=== PATIENT | female | born 1990 | race American Indian/Alaskan Native ===

== ENCOUNTER 2017-02-06 12:38 | Emergency (ER) | payer MEDICAID ==
[2017-02-06 12:50] VITALS: O2SAT 100
[2017-02-06] MEDS ORDERED: Sodium Chloride 0.9% 1,000 ML IV ONE (13:07)
--- NOTE | 2017-02-06 13:08 | C.PDOC ---
History Of Present Illness 26 y/o female with Hx of Lupus presents to ED with complaints of left flank pain that radiates to groin since yesterday. Pain is worse today and reports nausea and states she "doesn't feel well". Admits to taking Advil with no relief. Patient denies fever, chills, vomiting, diarrhea, urinary symptoms or any other associated complaints at this time. Time Seen by Provider: 02/06/17 12:55 Chief Complaint (Nursing): Back Pain History Per: Patient History/Exam Limitations: no limitations Onset/Duration Of Symptoms: Days Current Symptoms Are (Timing): Still Present Past Medical History Reviewed: Historical Data, Nursing Documentation, Vital Signs Vital Signs: Last Vital Signs Temp 98.6 F 02/06/17 15:29 Pulse 71 02/06/17 15:29 Resp 18 02/06/17 15:29 BP 115/70 02/06/17 15:29 Pulse Ox 100 02/06/17 15:59 - Medical History Other PMH: lupus Family History: States: No Known Family Hx - Social History Hx Alcohol Use: No Hx Substance Use: No - Immunization History Hx Tetanus Toxoid Vaccination: No Hx Influenza Vaccination: No Hx Pneumococcal Vaccination: No Review Of Systems Constitutional: Negative for: Fever, Chills Cardiovascular: Negative for: Palpitations Respiratory: Negative for: Cough, Shortness of Breath Gastrointestinal: Positive for: Nausea. Negative for: Vomiting, Diarrhea Genitourinary: Negative for: Dysuria, Frequency, Hematuria Musculoskeletal: Positive for: Back Pain (left flank) Skin: Negative for: Rash Neurological: Negative for: Headache, Dizziness Physical Exam - Physical Exam Appears: Other (uncomfortable, in pain) Skin: Warm, Dry, No Rash Head: Atraumatic, Normacephalic Eye(s): bilateral: Normal Inspection Oral Mucosa: Moist Neck: Normal ROM Chest: Symmetrical Cardiovascular: Rhythm Regular, No Murmur Respiratory: Normal Breath Sounds, No Rales, No Rhonchi, No Wheezing Gastrointestinal/Abdominal: Bowel Sounds, Soft, Tenderness (left lower quadrant) , No Mass, No Distention, No Guarding, No Rebound Back: CVA Tenderness, No Paraspinal Tenderness Extremity: Bilateral: Atraumatic, Normal Color And Temperature, Normal ROM Neurological/Psych: Oriented x3, Normal Speech ED Course And Treatment - Laboratory Results Result Diagrams: 02/06/17 13:25 02/06/17 13:25 Lab Interpretation: No Acute Changes O2 Sat by Pulse Oximetry: 100 (RA) Pulse Ox Interpretation: Normal - CT Scan/US abdomen w/o po or IV contrast Other Rad Studies (CT/US): Interpreted By Me, Read By Radiologist CT/US Interpretation: IMPRESSION: The appendix appears dilated up to 13 mm with evidence of a minimally thickened wall, fecal content, and small fluid at the appendiceal tip. No periappendiceal inflammatory stranding or adenopathy is identified. Indeterminate for acute appendicitis. Recommend clinical correlation including physical exam and white blood cell count. Question presence of left adnexal cyst measuring approximately 2.8 cm. Recommend pelvic ultrasound further evaluation. Medical Decision Making Medical Decision Making: Impression: Left flank pain Prior records reviewed: none available for review Plan: * Labs * CT * IV NS * Toradol Progress, Reassess and Dispo: Labs reviewed with no leukocytosis, no bands, no electrolyte abnormality, no UTI. CT report reviewed: The appendix appears dilated up to 13 mm with evidence of a minimally thickened wall, fecal content, and small fluid at the appendiceal tip. No periappendiceal inflammatory stranding or adenopathy is identified. Indeterminate for acute appendicitis. Recommend clinical correlation including physical exam and white blood cell count. Question presence of left adnexal cyst measuring approximately 2.8 cm. 1423 Contact residential leasing agent for evaluation 1543 spoke with resident who had discussed case with surgeon Dr Starkey and states surgery is not indicated, and given that patient has no right sided pain or any critical lab findings, will discharge. Patient advised to take medications for pain and closely follow up with primary doctor. Instruct to return for any worsening pain specific to right side Case discussed with attending who agrees with assessment and reviewed labs, there are no abnormal labs, surgery was consulted. 1550 Patient reevaluated by me and has no fever, vital signs stable and she is in no acute distress. I explained to patient at length the findings of CT and signs and symptoms to be aware of and to immediately return to hospital if she develops fever, right lower abdominal pain, vomiting, diarrhea. Patient verbalized understanding. She will be discharged home. Disposition Counseled Patient/Family Regarding: Studies Performed, Diagnosis, Need For Followup - Disposition Referrals: [facility] [Outside] [facility] [Outside] Disposition: HOME/ ROUTINE Disposition Time: 15:57 Condition: IMPROVED Additional Instructions: Your labs were normal CT showed left adnexal cyst and inflammation of appendix Return to hospital immediately if you develop fever, right lower abdominal pain , vomiting, diarrhea or any other concerning symptoms Instructions: Flank Pain (ED) Forms: [facility] (Syrian) - POA Present On Arrival: None - Clinical Impression Clinical Impression: Left flank pain, Abnormal abdominal CT scan - PA / INSPECTOR PLUG SEAM / Resident Statement MD/DO has reviewed & agrees with the documentation as recorded. - Scribe Statement The provider has reviewed the documentation as recorded by the Adrian Higgins All medical record entries made by the Adrian were at my direction and personally dictated by me. I have reviewed the chart and agree that the record accurately reflects my personal performance of the history, physical exam, medical decision making, and the department course for this patient. I have also personally directed, reviewed, and agree with the discharge instructions and disposition.
[2017-02-06 13:19] LABS: RBC URINE 1 /hpf (0-3); URINE BILIRUBIN NEGATIVE (NEGATIVE); URINE BLOOD 1+ (NEGATIVE); URINE COLOR Yellow (YELLOW); URINE GLUCOSE (UA) NORMAL (Normal); URINE KETONE NEGATIVE (NEGATIVE); URINE LEUKOCYTE ESTERASE NEG Leu/uL (Negative); URINE PROTEIN NEGATIVE (NEGATIVE); URINE UROBILINOGEN NORMAL mg/dL (0.2-1.0)
[2017-02-06 13:20] LABS: URINE BACTERIA RARE (<OCC); WBC URINE 1 /hpf (0-5)
[2017-02-06] MEDS ORDERED: Sodium Chloride 0.9% 1,000 ML ONE (13:29)
[2017-02-06 13:32] LABS: BASO # 0.1 K/uL (0.0-0.2); BASO % 0.9 % (0.0-2.0); EOS # 0.2 K/uL (0.0-0.7); EOS % 2.7 % (0.0-4.0); HEMATOCRIT 35.4 % (34.0-47.0); LYMPH # 1.7 K/uL (1.0-4.3); LYMPH % 24.4 % (20.0-40.0); MEAN CELL VOLUME 85.2 fL (81.0-99.0); MEAN CORPUSCULAR HEMOGLOBIN 28.7 pg (27.0-31.0); MEAN CORPUSCULAR HGB CONC 33.7 g/dL (33.0-37.0); MEAN PLATELET VOLUME 8.8 fL (7.2-11.7); MONO # 0.8 K/uL (0.0-0.8); MONO % 11.1 % (0.0-10.0); RED CELL DISTRIBUTION WIDTH 14.8 % (11.5-14.5); WHITE BLOOD COUNT 6.8 K/uL (4.8-10.8)
[2017-02-06 14:00] LABS: CHLORIDE 103 mmol/L (98-107); POTASSIUM 3.9 mmol/L (3.6-5.2); SODIUM 139 mmol/L (132-148)
[2017-02-06 14:02] LABS: BILIRUBIN,TOTAL 1.1 mg/dL (0.2-1.3); CARBON DIOXIDE 24 mmol/L (22-30); GFR AFRICAN-AMERICAN > 60
[2017-02-06 14:03] LABS: ALKALINE PHOSPHATASE 45 U/L (38-126); ALT/SGPT 28 U/L (9-52); AST/SGOT 20 U/L (14-36); BLOOD UREA NITROGEN 8 mg/dL (7-17); CALCIUM 9.3 mg/dl (8.6-10.4); GLUCOSE,RANDOM 84 mg/dL (65-105); TOTAL PROTEIN 7.5 g/dL (6.3-8.3)
--- NOTE | 2017-02-06 14:11 | CT ---
PROCEDURE: CT Abdomen and Pelvis without Oral or IV contrast. HISTORY: left flank pain COMPARISON: None available. TECHNIQUE: Contiguous axial images of the abdomen and pelvis. No oral or IV contrast administered. Coronal and Sagittal reformats generated and reviewed. Radiation dose: Total exam DLP = 531.86 mGy-cm. This CT exam was performed using one or more of the following dose reduction techniques: Automated exposure control, adjustment of the mA and/or kV according to patient size, and/or use of iterative reconstruction technique. FINDINGS: There is limited evaluation of the solid organs without the administration of IV contrast. LOWER THORAX: No visible consolidation, pleural effusion, or pneumothorax. Small hiatal hernia/distal esophageal wall thickening. LIVER: Unremarkable unenhanced appearance. GALLBLADDER AND BILE DUCTS: Unremarkable unenhanced appearance. PANCREAS: Unremarkable unenhanced appearance. SPLEEN: 14 mm probable splenule. Otherwise unremarkable unenhanced appearance. ADRENALS: Unremarkable. KIDNEYS AND URETERS: No hydronephrosis or obstructing renal calculus. BLADDER: Under distended urinary bladder appears otherwise unremarkable. REPRODUCTIVE: Uterus is present. Question presence of left adnexal cyst measuring approximately 2.8 cm. APPENDIX: The appendix appears dilated up to 13 mm with evidence of a minimally thickened wall, fecal content, and small fluid at the appendiceal tip. No periappendiceal inflammatory stranding or adenopathy identified. BOWEL: The stomach is nondistended. Lack of oral contrast limits evaluation for bowel pathology. The bowel loops appear within normal limits of caliber without evidence of intestinal obstruction. PERITONEUM: No significant free fluid. No definite free air. LYMPH NODES: No bulky lymphadenopathy identified. VASCULATURE: No aortic aneurysm. BONES: No acute osseous abnormality is detected. OTHER FINDINGS: Pelvic calcifications, likely phleboliths. 5 mm fat containing umbilical hernia. IMPRESSION: The appendix appears dilated up to 13 mm with evidence of a minimally thickened wall, fecal content, and small fluid at the appendiceal tip. No periappendiceal inflammatory stranding or adenopathy is identified. Indeterminate for acute appendicitis. Recommend clinical correlation including physical exam and white blood cell count. Question presence of left adnexal cyst measuring approximately 2.8 cm. Recommend pelvic ultrasound further evaluation.
[2017-02-06 15:30] VITALS: BP 115/70; PULSE 71; RESP 18; TEMP 98.6
== END 2017-02-06 16:08 | disposition home or self-care (01) ==
LOC: C.ER 12:38
DX: R10.32 Left lower quadrant pain (principal); R93.5 Abnormal findings on diagnostic imaging of other abdominal regions, including retroperitoneum; M32.9 Systemic lupus erythematosus, unspecified
CPT/HCPCS: 74176; 80053; 81001; 84703; 85025; 87086; 96361; 96374; 99285; J1885; J2001; J7040

== ENCOUNTER 2017-02-09 22:13 | Emergency (ER) | payer MEDICAID ==
[2017-02-09] MEDS ORDERED: Morphine 4 MG/ML VIAL IV PRN (22:32)
[2017-02-09 22:54] LABS: RBC URINE 1 /hpf (0-3); URINE BACTERIA RARE (<OCC); URINE BILIRUBIN NEGATIVE (NEGATIVE); URINE BLOOD NEGATIVE (NEGATIVE); URINE COLOR Yellow (YELLOW); URINE GLUCOSE (UA) NORMAL (Normal); URINE KETONE NEGATIVE (NEGATIVE); URINE LEUKOCYTE ESTERASE NEG Leu/uL (Negative); URINE PROTEIN NEGATIVE (NEGATIVE); URINE UROBILINOGEN NORMAL mg/dL (0.2-1.0); WBC URINE 3 /hpf (0-5)
[2017-02-09 22:57] LABS: BASO # 0.1 K/uL (0.0-0.2); BASO % 1.1 % (0.0-2.0); EOS # 0.1 K/uL (0.0-0.7); HEMATOCRIT 34.3 % (34.0-47.0); LYMPH # 2.2 K/uL (1.0-4.3); LYMPH % 39.7 % (20.0-40.0); MEAN CELL VOLUME 83.8 fL (81.0-99.0); MEAN CORPUSCULAR HEMOGLOBIN 28.3 pg (27.0-31.0); MEAN CORPUSCULAR HGB CONC 33.8 g/dL (33.0-37.0); MEAN PLATELET VOLUME 8.1 fL (7.2-11.7); MONO # 0.5 K/uL (0.0-0.8); NRBC % 0.1 % (0.0-2.0); RED CELL DISTRIBUTION WIDTH 14.6 % (11.5-14.5); WHITE BLOOD COUNT 5.4 K/uL (4.8-10.8)
[2017-02-09 23:03] LABS: INR 1.2
[2017-02-09 23:04] LABS: CHLORIDE 104 mmol/L (98-107)
[2017-02-09 23:05] LABS: POTASSIUM 3.7 mmol/L (3.6-5.2); SODIUM 138 mmol/L (132-148)
[2017-02-09 23:07] LABS: ALB/GLOB RATIO 1.1 (1.0-2.1); ALKALINE PHOSPHATASE 42 U/L (38-126); AST/SGOT 18 U/L (14-36); BILIRUBIN,TOTAL 0.8 mg/dL (0.2-1.3); BLOOD UREA NITROGEN 11 mg/dL (7-17); CARBON DIOXIDE 23 mmol/L (22-30); GFR AFRICAN-AMERICAN > 60; TOTAL PROTEIN 7.6 g/dL (6.3-8.3)
[2017-02-09 23:08] LABS: ALT/SGPT 33 U/L (9-52); CALCIUM 9.3 mg/dl (8.6-10.4); GLUCOSE,RANDOM 88 mg/dL (65-105)
--- NOTE | 2017-02-09 23:14 | C.PDOC ---
History Of Present Illness 26 year old female who presents to the ER with a complaint of RLQ pain. Patient was seen on the for a complaint of lower abdominal pain. Patient had normal lab results at the time and CT was suspicious for appendicitis. Patient was evaluated by surgery and sent home with instructions to return to ED if RLQ pain develops. Denies fever, chills, nausea, or vomiting. Time Seen by Provider: 02/09/17 22:26 Chief Complaint (Nursing): Abdominal Pain History Per: Patient History/Exam Limitations: no limitations Onset/Duration Of Symptoms: Hrs Current Symptoms Are (Timing): Still Present Location Of Pain/Discomfort: RLQ Radiation Of Pain To:: None Quality Of Discomfort: Unable To Describe Associated Symptoms: denies: Fever, Chills, Nausea, Vomiting Exacerbating Factors: None Alleviating Factors: None Recent travel outside of the [place]: No Abnormal Vaginal Bleeding: No Past Medical History Reviewed: Historical Data, Nursing Documentation, Vital Signs Vital Signs: Last Vital Signs Temp 97.2 F L 02/09/17 22:19 Pulse 75 02/09/17 22:19 Resp 16 02/09/17 22:19 BP 118/84 02/09/17 22:19 Pulse Ox 97 02/09/17 23:24 - Medical History PMH: No Chronic Diseases Surgical History: No Surg Hx Family History: States: Unknown Family Hx - Social History Hx Alcohol Use: Yes Hx Substance Use: No - Immunization History Hx Tetanus Toxoid Vaccination: No Hx Influenza Vaccination: No Hx Pneumococcal Vaccination: No Review Of Systems Constitutional: Negative for: Fever, Chills Gastrointestinal: Positive for: Abdominal Pain. Negative for: Nausea, Vomiting Physical Exam - Physical Exam Appears: Non-toxic, Other (Moderate distress) Skin: Normal Color, Warm, Dry Head: Atraumatic, Normacephalic Oral Mucosa: Moist Chest: Symmetrical, No Tenderness Cardiovascular: Rhythm Regular, No Murmur Respiratory: Normal Breath Sounds, No Rales, No Rhonchi, No Wheezing Gastrointestinal/Abdominal: Soft, Tenderness (RLQ) Neurological/Psych: Oriented x3, Normal Speech, Normal Cognition ED Course And Treatment - Laboratory Results Result Diagrams: 02/09/17 22:54 02/09/17 22:54 O2 Sat by Pulse Oximetry: 97 (Room air) Pulse Ox Interpretation: Normal Progress Note: CT abd/pel ordered. Toradol and morphine administered. Medical Decision Making Medical Decision Makin: labs wnl, and + McBurney's suspicous for AP. Pending CT Signed over to overnight MD to f/u CT and Surgical Consult PRN Disposition - Disposition Disposition Time: 01:00 Condition: GOOD Forms: [facility] (Rw[place]an) - Clinical Impression Clinical Impression: Abdominal pain - Scribe Statement The provider has reviewed the documentation as recorded by the Scribe Paulie Cline All medical record entries made by the Scribe were at my direction and personally dictated by me. I have reviewed the chart and agree that the record accurately reflects my personal performance of the history, physical exam, medical decision making, and the department course for this patient. I have also personally directed, reviewed, and agree with the discharge instructions and disposition. Physician Patient Turnover Patient Signed Over To: Renato Anthony Handoff Comments: follow-up CT and Surgical Consult as needed.
[2017-02-09] MEDS ORDERED: Iodixanol 320 MG/ML 100 ML BOTTLE IV ONE (23:46)
[2017-02-10 01:03] VITALS: O2SAT 100
--- NOTE | 2017-02-10 02:54 | CT ---
EXAM: CT Abdomen and Pelvis With Intravenous Contrast EXAM DATE/TIME: 02/09/2017 10:31 PM CLINICAL HISTORY: 26 years old, female; Pain; Abdominal pain; Localized; Right lower quadrant (rlq); Additional info: Rlq, ? ap (prior dx ap but clinically neg) TECHNIQUE: Axial computed tomography images of the abdomen and pelvis with intravenous contrast. All CT scans at this facility use one or more dose reduction techniques, viz.: automated exposure control; ma/kV adjustment per patient size (including targeted exams where dose is matched to indication; i.e. head); or iterative reconstruction technique. Coronal and sagittal reformatted images were created and reviewed. CONTRAST: 100 mL of [id number] administered intravenously. COMPARISON: No relevant prior studies available. FINDINGS: LIMITATIONS: Moderate streak/motion artifact. LOWER THORAX: No infiltrate seen in the lung bases. ABDOMEN: LIVER: No acute abnormality of the liver identified. GALLBLADDER AND BILE DUCTS: No CT evidence of acute cholecystitis. No evidence of significant biliary ductal dilatation. PANCREAS: No CT evidence of acute pancreatitis. SPLEEN: No acute abnormality of the spleen identified. ADRENALS: No acute abnormality of the adrenal glands identified. KIDNEYS AND URETERS: No acute abnormality of the kidneys identified. No evidence of significant hydrouereteronephrosis. STOMACH AND BOWEL: No acute abnormality of the stomach, small bowel or colon identified. No evidence of bowel obstruction. APPENDIX: Appendix is seen, and is within normal limits in appearance. PELVIS: BLADDER: No acute abnormality of the bladder identified. REPRODUCTIVE: Minimally complex cystic lesion versus 2 adjacent simple cystic lesions in the left ovary, measuring 3.2 x 3.2 cm. If this is a complex lesion, it demonstrates a thin internal soft tissue septation. No adjacent inflammation or associated gas. Recommend follow up pelvic ultrasound as clinically indicated. No evidence of significant right adnexal masses. No acute abnormality of the uterus identified. ABDOMEN and PELVIS: INTRAPERITONEAL SPACE: No evidence of free intraperitoneal air or fluid. BONES/JOINTS: No acute fractures or other acute bony abnormality noted. SOFT TISSUES: No acute abnormality of the visualized soft tissues is seen. VASCULATURE: No evidence of abdominal aortic aneurysm. No evidence of periaortic hemorrhage. LYMPH NODES: No evidence of diffuse lymphadenopathy. IMPRESSION: - No evidence of significant acute process, allowing for motion artifact. - 3.2 cm minimally complex cystic lesion versus 2 adjacent simple cystic lesions in the left ovary. - See above for remaining findings.
[2017-02-10 03:11] VITALS: BP 115/87; PULSE 61; RESP 20; TEMP 98.4
== END 2017-02-10 03:11 | disposition home or self-care (01) ==
LOC: C.ER 22:13
DX: N83.202 Unspecified ovarian cyst, left side (principal); R10.9 Unspecified abdominal pain
CPT/HCPCS: 74177; 80053; 80324; 80345; 80346; 80349; 80353; 80358; 80361; 81001; 83690; 83992; 84703; 85025; 85610; 85730; 96374; 99285; J1885; Q9967